=== PATIENT | male | born 1975 | race Hispanic/Latino ===

== ENCOUNTER 2020-06-02 12:38 | Emergency (ER) | payer OTHER, SELFPAY ==
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
[2020-06-02] MEDS ORDERED: IBUPROFEN 200 MG TAB PO ONE ×2 (13:37→13:41)
[2020-06-02 13:50] VITALS: BP 129/96; TEMP 98.3; O2SAT 100
== END 2020-06-02 13:44 | disposition home or self-care (01) ==
LOC: ER 12:38
DX: S16.1XXA Strain of muscle, fascia and tendon at neck level, initial encounter (principal); M25.551 Pain in right hip; V49.40XA Driver injured in collision with unspecified motor vehicles in traffic accident, initial encounter
CPT/HCPCS: 99283